=== PATIENT | female | born 1990 | race Caucasian/White ===

== ENCOUNTER 2017-04-10 14:06 | Emergency (ER) | payer OTHER ==
--- NOTE | 2017-04-10 14:33 | ERNOTE ---
Time Seen by Provider: 04/10/17 14:19 Stated Complaint: LEFT SIDE HURT Presenting Symptoms:: cough Source: patient Exam Limitations: no limitations Immunizations: IMMUNIZATION HX Immunizations Up to Date Yes Allergies/Adverse Reactions: Allergies No Known Allergies Allergy (Unverified 04/10/17 14:17) Home Medications: HOME MEDICATIONS Benzonatate [Tessalon Perle] 100 mg PO TID PRN 04/10/17 [Last Taken Unknown] Escitalopram Oxalate [Lexapro] 10 mg PO DAILY 04/10/17 [Last Taken Unknown] levETIRAcetam [Keppra] 500 mg PO BID 04/10/17 [Last Taken Unknown] - History of Present Ilness Narrative: Patient has had a cough for about two weeks. She was seen and started on tessalon and doxyclycline. Her cough is getting better but she has pain in her left lower lateral chest that initially was there only with the cough but is constant now, worse with cough and certain movements. She has not tried any pain medications yet, denies fever or abdominal pain Timing: constant Modifying Factors - Worsens: Reports: coughing. Denies: deep breath Associated Symptoms: Reports: chest pain/soreness, cough. Denies: shortness of breath, facial pain, nasal congestion, fever/chills Prior Treatment: Reports: recently seen, currently on antibiotics Review of Systems - Review of Systems Constitutional: Present: recent illness. Absent: fever, chills EYE: Absent: double vision ENT: Absent: nose pain, nose congestion, sore throat Respiratory: Present: cough. Absent: shortness of breath Cardiology: Present: See HPI, chest pain Gastrointestinal/Abdominal: Absent: nausea, vomiting, abdominal pain Genitourinary: Present: no symptoms reported Musculoskeletal: Present: See HPI. Absent: back pain Skin: Absent: rash Neurological: Absent: headache, weakness, numbness - Patient's Past Medical History Patient History - Medical: Seizures Patient History - Cardiac/Respiratory: No pertinent hx Patient History - Cancer: No Hx of Cancer Patient History - Surgical Procedures: Orthopedic - Social History Living Situations: home Smoking Status: Never smoker Have you smoked in the past 12 months: No Alcohol Use: none Drug Use: none - Immunizations Immunizations Up to Date: Yes Physical Exam - Physical Exam General Appearance: Present: wd/wn, alert, no apparent distress Head Exam: Present: normal inspection Eye Exam: Normal inspection: bilateral Ears, Nose, Throat: Present: normal ENT inspection, normal pharynx Neck: Present: normal inspection, nontender Respiratory: Present: no respiratory distress, normal breath sounds, no accessory muscle use, lungs clear, chest tenderness - left lower ribs in mid axillary line Cardiovascular/Chest: Present: regular rate, rhythm, no murmur, normal peripheral pulses Gastrointestinal/Abdominal: Present: normal bowel sounds, nontender, nondistended, soft Neurological Exam: Present: alert, oriented, normal mood/affect Skin Exam: Present: normal color, warm/dry ED Progress - Vital Signs Patient's Vital Signs:: I have reviewed the patient's vital signs. Vital Signs: Vital Signs 04/10/17 14:15 Temperature 36.7 C Pulse Rate 103 H Respiratory 14 Rate Blood Pressure 140/87 O2 Sat by Pulse 97 Oximetry - X-Ray X-Ray #1 X-Ray: chest - no acute findings Interpretation: Interp. by me - Progress/Reassessment Chief Complaint: Back Pain Progress Note-Subjective: 04/10/17 14:47 discussed Xray results with patient Departure Clinical Impression: Acute chest wall pain - Departure Disposition: Home self-care Condition: Good Instructions: Chest Wall Pain, [id number] Additional Instructions: continue to use tylenol as needed for pain the pain should improve over the next 3-4 days Referrals: Manjula Figueroa ARNP [[facility]] -
[2017-04-10] MEDS ORDERED: ACETAMINOPHEN 325 MG TABLET ONE (14:42)
[2017-04-10] MEDS: ACETAMINOPHEN 325 MG TABLET PO ONE (14:43)
[2017-04-10 14:53] VITALS: BP 133/82
== END 2017-04-10 14:52 | disposition home or self-care (01) ==
LOC: ER 14:06
DX: R07.89 Other chest pain (principal)